=== PATIENT | female | born 1970 | race Caucasian/White ===

== ENCOUNTER 2020-08-21 13:33 | Emergency (ER) | payer BC, SELFPAY ==
[2020-08-21 13:48] VITALS: BP 144/97; PULSE 91; RESP 14; TEMP 36.3; O2SAT 97; BMI 20.5
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
[2020-08-21] MEDS: lidocaine-prilocaine cream 5 gm 2 APPLIC TOPICAL (14:41)
[2020-08-21 15:33] VITALS: BP 138/79; PULSE 75; RESP 15; O2SAT 97
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
== END 2020-08-21 15:33 | disposition home or self-care (01) ==
PROVIDERS: Emergency Provider Nurse Practitioner Family
DX: S01.511A Laceration without foreign body of lip, initial encounter (principal); S02.5XXB Fracture of tooth (traumatic), initial encounter for open fracture; W20.8XXA Other cause of strike by thrown, projected or falling object, initial encounter
CPT/HCPCS: 12013; 12345; 70486; 99282; 99283

== ENCOUNTER → 2020-12-13 10:12 | Outpatient (BNVA) | payer BC, SELFPAY | PROVIDERS: Visit Provider Family Medicine | DX: E03.9 Hypothyroidism, unspecified (principal); I10 Essential (primary) hypertension; Z13.6 Encounter for screening for cardiovascular disorders | CPT/HCPCS: 80053; 80061; 84443 ==

== ENCOUNTER 2021-01-09 06:41 | Outpatient (CLI) | payer BC, SELFPAY ==
[2021-01-09 06:51] VITALS: BMI 21.4
--- NOTE | 2021-01-09 07:02 | ECG_ITS ---
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 Interpretive Statements NAME OF STUDY: TREADMILL STRESS TEST INDICATION: Chest Pain Baseline blood pressure of 109/77 mm Hg, heart rate of 72 beats per minute and oxygen saturation 98%. EKG showed normal sinus rhythm, normal axis with RSR prime in V1 and V2 consider normal variant. The patient exercised for 10 minutes and 4 seconds on a standard Pranav protocol. Patient attained a maximum heart rate of 149 beats per minute(87% of the maximum predicted heart rate) with a blood pressure at the peak exercise of 172/79 mm Hg and oxygen saturation 97%. The EKG at the peak exercise revealed sinus tachycardia with no significant ST-T wave changes. Patient did not have any chest pain or any significant arrhythmis with the exercise. The study was terminated due to exertional fatigue and shortness of breath. During the recovery phase, there were no new changes. Blood pressure at the end of the recovery phase was 118/83 mm Hg with a heart rate of 71 beats per minute and oxygen saturation 97%. CONCLUSION: 1. Normal EKG response to treadmill exercise. 2. No exercise-induced chest pain or cardiac arrhythmia 3. Excellent exercise tolerance, attained a maximum of 13.5 METs. Maximum VO2 of 47.3 mL/kg/min. 4. Baseline normal blood pressure with normal response to exercise. Electronically Signed On 01-16-2021 17:08:54 CDT by Lorena Lloyd M.D. [id number]
[2021-01-09 07:46] VITALS: BP 118/83; PULSE 71
== END 2021-01-09 06:42 | disposition home or self-care (01) ==
LOC: CDL 06:46
PROVIDERS: PCP Family Medicine; Visit Provider Family Medicine
DX: R07.9 Chest pain, unspecified (principal)
CPT/HCPCS: 93017

== ENCOUNTER → 2021-03-17 11:09 | Outpatient (BNVA) | payer BC, SELFPAY | PROVIDERS: PCP Family Medicine; Visit Provider Family Medicine | DX: E03.9 Hypothyroidism, unspecified (principal) | CPT/HCPCS: 84439; 84443; 84481 ==

== ENCOUNTER 2021-05-16 09:05 | Outpatient (CLI) | payer BC, SELFPAY ==
--- NOTE | 2021-05-16 09:30 | MM_ITS ---
WS: [id number] BILATERAL SCREENING DIGITAL MAMMOGRAM WITH CAD HISTORY: Z12.39 - Encounter for other screening for malignant neoplasm. COMPARISON: 10/27/2019, 10/09/2018 Bilateral CC and MLO views submitted. Computer aided detection analyzed. Breast composition: There are scattered areas of fibroglandular density. No suspicious masses, microc alcifications or architectural distortion. Asymmetry in the RIGHT breast, lateral, is stable. MM/[place] [id number] IMPRESSION: BI-RADS: 2-Benign FOLLOW UP: 1 Year Follow-up
== END 2021-05-16 09:06 | disposition home or self-care (01) ==
LOC: RADSHAW 09:10
PROVIDERS: PCP Family Medicine; Visit Provider Family Medicine
DX: Z12.31 Encounter for screening mammogram for malignant neoplasm of breast (principal)
CPT/HCPCS: 77067

== ENCOUNTER → 2021-09-13 13:10 | Outpatient (BNVA) | payer BC, SELFPAY | PROVIDERS: PCP Family Medicine; Visit Provider Family Medicine | DX: Z13.220 Encounter for screening for lipoid disorders (principal); E03.9 Hypothyroidism, unspecified; I10 Essential (primary) hypertension; Z13.6 Encounter for screening for cardiovascular disorders; K21.9 Gastro-esophageal reflux disease without esophagitis; E89.40 Asymptomatic postprocedural ovarian failure; Z90.710 Acquired absence of both cervix and uterus | CPT/HCPCS: 80053; 80061; 84439; 84443; 84481 ==

== ENCOUNTER → 2022-03-14 13:38 | Outpatient (BNVA) | payer BC, SELFPAY | PROVIDERS: PCP Family Medicine; Visit Provider Family Medicine | DX: I10 Essential (primary) hypertension (principal); E03.9 Hypothyroidism, unspecified; L57.0 Actinic keratosis; E78.2 Mixed hyperlipidemia; Z12.31 Encounter for screening mammogram for malignant neoplasm of breast; Z13.6 Encounter for screening for cardiovascular disorders; Z12.11 Encounter for screening for malignant neoplasm of colon | CPT/HCPCS: 80053; 80061; 83721; 84439; 84443; 84481 ==

== ENCOUNTER 2022-05-18 09:40 | Outpatient (CLI) | payer BC, SELFPAY ==
--- NOTE | 2022-05-18 09:45 | MM_ITS ---
WS: [id number] Bilateral screening 3D tomosynthesis digital mammogram, 05/18/2022 Clinical Data: Z12.39 - Encounter for other screening for malignant neop... Comparison: 05/16/2021, 10/27/2019, 10/09/2018, 12/25/2017, 03/07/2017, 02/28/2016. Findings: The breast parenchymal pattern shows ingenious density. No spiculated masses or clustered calcificati ons are seen. There are no secondary signs of carcinoma. There are lymph nodes in both axilla. MM/[place] [id number] Impression: 1. Negative bilateral mammogram unchanged. 2. Recommend annual screening mammograms. BIRADS: 1-Negative FOLLOW UP: 1 Year Follow-up The CAD insurance checker was used.
== END 2022-05-18 09:41 | disposition home or self-care (01) ==
LOC: RAD 09:41
PROVIDERS: PCP Family Medicine; Visit Provider Family Medicine
DX: Z12.31 Encounter for screening mammogram for malignant neoplasm of breast (principal)
CPT/HCPCS: 77063; 77067

== ENCOUNTER → 2022-06-13 09:31 | Outpatient (BNVA) | payer BC, SELFPAY | PROVIDERS: PCP Family Medicine; Visit Provider Family Medicine | DX: I10 Essential (primary) hypertension (principal); E78.2 Mixed hyperlipidemia | CPT/HCPCS: 80061 ==

== ENCOUNTER 2022-07-04 06:46 | Day surgery (SDC) | payer BC, SELFPAY ==
[2022-07-02 09:30] VITALS: BMI 20.5
--- NOTE | 2022-07-04 07:38 | P.ANESASSM_ITS ---
Pre-Anesthetic Assessment Height/Weight: Height 1.63 m Weight 54.431 kg Operation Date: 07/04/22 08:30 Proposed Procedures p Colonoscopy 24005,Z12.11(Not Applicable) - Levi Arce DO Familial anesthetic complications: none Was Beta Siva taken within 24 hours: N/A Was Clonidine taken within 24 hours: N/A Last intake: > 8hrs Social No alcohol and No tobacco Exam alert, oriented x 3, clear to auscultation bilaterally and regular rate & rhythm Airway Mallampati: Class II Dentition: partials CV/HEM Hypertension GI Gastroesophageal Reflux Disease Metabolic Thyroid Disease Anesthetic Plan ASA status: 2 Anesthesia: MAC Risk of > 500 ml blood loss (7ml/kg in children): No Medications/Allergies Home Medications Medication Instructions Recorded Confirmed Last Taken Type estradiol 1 mg tablet 1 mg PO DAILY 90 days #90 tabs 09/13/21 07/02/22 Unknown Rx omeprazole 20 mg capsule,delayed 20 mg PO DAILY 90 days #90 caps 09/13/21 07/02/22 Unknown Rx release Fish oil 1,000 mg PO DAILY 03/30/22 07/02/22 Unknown History lisinopril 10 mg tablet 5 mg PO DAILY 06/13/22 07/02/22 Unknown History levothyroxine 50 mcg tablet 50 mcg PO DAILY 90 days #30 tabs 06/17/22 07/02/22 Unknown Rx Allergies Allergy/AdvReac Type Severity Reaction Status Date / Time celecoxib [From Celebrex] Allergy ADR-Swelling Verified 07/02/22 09:28 of the Eye doxycycline Allergy hypertensio Verified 07/02/22 09:28 n morphine Allergy ALGY-Rash Verified 07/02/22 09:28 Sulfa (Sulfonamide Allergy ADR-Swelling Verified 07/02/22 09:28 Antibiotics) of the Eye [facility] Anesthesia Medical History Family history of early CAD Family hx of colon cancer GERD (gastroesophageal reflux disease) Hypertension Hypothyroidism Surgical History H/O hysterectomy with oophorectomy History of esophagogastroduodenoscopy (EGD) Hx of colonoscopy Age 41 and 46 S/P cholecystectomy Family History Father Cancer Mother Cancer Other CAD (coronary artery disease) Hypertension Denies family history of Diabetes Social History Smoking and tobacco status: never smoked Second hand smoke exposure: No Alcohol intake: current Alcohol intake frequency: holidays/special occasions only Desire information about alcohol rehabilitation?: No Desire information about substance/drug rehabilitation?: No Female Reproductive History Spontaneous abortions: No Data Anesthesia Cardiac Studies: No Data to Display
[2022-07-04 07:47] VITALS: BP 110/82; PULSE 65; RESP 16; TEMP 36.3; O2SAT 97
[2022-07-04] MEDS: sodium chloride 0.9% 1,000 ML 30 ML IV (07:55)
--- NOTE | 2022-07-04 08:44 | P.HP_ITS ---
Providers/Chief Complaint Primary Care Provider: Doris Mitchell MD Chief Complaint: Family history of colon cancer History of Present Illness Aidee Lugo is a 52 year old female here for colonoscopy Medications/Allergies Home Medications Medication Instructions Recorded Confirmed Last Taken Type estradiol 1 mg tablet 1 mg PO DAILY 90 days #90 tabs 09/13/21 07/02/22 07/03/22 Rx omeprazole 20 mg capsule,delayed 20 mg PO DAILY 90 days #90 caps 09/13/21 07/02/22 07/03/22 08:00 Rx release Fish oil 1,000 mg PO DAILY 03/30/22 07/02/22 07/03/22 History lisinopril 10 mg tablet 5 mg PO DAILY 06/13/22 07/02/22 07/03/22 08:00 History levothyroxine 50 mcg tablet 50 mcg PO DAILY 90 days #30 tabs 06/17/22 07/02/22 07/04/22 06:00 Rx Allergies Allergy/AdvReac Type Severity Reaction Status Date / Time celecoxib [From Celebrex] Allergy ADR-Swelling Verified 07/02/22 09:28 of the Eye doxycycline Allergy hypertensio Verified 07/02/22 09:28 n morphine Allergy ALGY-Rash Verified 07/02/22 09:28 Sulfa (Sulfonamide Allergy ADR-Swelling Verified 07/02/22 09:28 Antibiotics) of the Eye PFSH Acute PFSH: Medical History (Updated 07/04/22 @ 08:44 by Levi Arce DO) Family history of early CAD Family hx of colon cancer GERD (gastroesophageal reflux disease) Hypertension Hypothyroidism Surgical History H/O hysterectomy with oophorectomy History of esophagogastroduodenoscopy (EGD) Hx of colonoscopy Age 41 and 46 S/P cholecystectomy Family History Father Cancer Mother Cancer Other CAD (coronary artery disease) Hypertension Denies family history of Diabetes Social History Smoking and tobacco status: never smoked Second hand smoke exposure: No Alcohol intake: current Alcohol intake frequency: holidays/special occasions only Desire information about alcohol rehabilitation?: No Desire information about substance/drug rehabilitation?: No Female Reproductive History: Spontaneous abortions: No Vitals/I&O/Wt Last Vital Signs Temp 97.3 F L 07/04/22 07:47 Pulse 65 07/04/22 07:47 Resp 16 07/04/22 07:47 BP 110/82 07/04/22 07:47 Pulse Ox 97 07/04/22 07:47 O2 Del Method 07/04/22 07:47 Weight last 48 hrs Weight 120 lb A&P Assessment and plan (1) Family hx of colon cancer: Plan Colonoscopy Attestations Medical Necessity Statement*: Home Coding Level of Care Code Acute Sharepoint Specialist for Chg Fwd Diagnoses Family hx of colon cancer Z80.0
[2022-07-04 09:09] VITALS: BP 108/66; PULSE 68; RESP 16; TEMP 36.1; O2SAT 99
--- NOTE | 2022-07-04 09:12 | ANE.PACU2 ---
Inpatient post-anesthesia follow up: Airway intact: Yes Vital signs: Temperature 97.3 F Pulse Rate 65 Respiratory Rate 16 Blood Pressure 110/82 Pulse Oximetry 97 Oxygen Delivery Me thod Room Air Oxygen Flow Rate Fraction of Inspir ed Oxygen Hydration adequate: Yes Nausea and vomiting: No Pain level: 1 Mental status: Baseline
[2022-07-04 09:20] VITALS: BP 111/75; PULSE 69; RESP 18; O2SAT 100
== END 2022-07-04 09:33 | disposition home or self-care (01) ==
PROVIDERS: PCP Family Medicine; Visit Provider Surgery
PROC: 0DJD8ZZ Inspection of Lower Intestinal Tract, Via Natural or Artificial Opening Endoscopic (ICD-10-PCS; CPT 45378; principal; 2022-07-04 08:30)
DX: Z12.11 Encounter for screening for malignant neoplasm of colon (principal); Z80.0 Family history of malignant neoplasm of digestive organs; I10 Essential (primary) hypertension; K21.9 Gastro-esophageal reflux disease without esophagitis; Z82.49 Family history of ischemic heart disease and other diseases of the circulatory system; E03.9 Hypothyroidism, unspecified
CPT/HCPCS: 45378; J7030

== ENCOUNTER → 2022-10-10 10:27 | Outpatient (BNVA) | payer BC, SELFPAY | PROVIDERS: PCP Family Medicine; Visit Provider Family Medicine | DX: E03.9 Hypothyroidism, unspecified (principal); I10 Essential (primary) hypertension; E78.2 Mixed hyperlipidemia; G43.109 Migraine with aura, not intractable, without status migrainosus; K21.9 Gastro-esophageal reflux disease without esophagitis; E89.40 Asymptomatic postprocedural ovarian failure; Z79.890 Hormone replacement therapy; Z90.710 Acquired absence of both cervix and uterus | CPT/HCPCS: 80053; 80061; 84439; 84443; 84481 ==

== ENCOUNTER → 2023-03-13 13:21 | Outpatient (BNVA) | payer BC, SELFPAY | PROVIDERS: PCP Family Medicine; Visit Provider Family Medicine | DX: M54.50 Low back pain, unspecified (principal); E03.9 Hypothyroidism, unspecified; E78.2 Mixed hyperlipidemia | CPT/HCPCS: 80061; 81000; 84439; 84443; 84481 ==

== ENCOUNTER → 2023-03-22 10:19 | Outpatient (BNVA) | payer BC, SELFPAY | PROVIDERS: PCP Family Medicine; Visit Provider Family Medicine | DX: E03.9 Hypothyroidism, unspecified (principal); E78.2 Mixed hyperlipidemia | CPT/HCPCS: 80061; 84439; 84443; 84481 ==

== ENCOUNTER 2023-05-21 12:28 | Outpatient (CLI) | payer BC, SELFPAY ==
--- NOTE | 2023-05-21 12:48 | MM_ITS ---
WS: [email or web address] BILATERAL 3D TOMOSYNTHESIS DIGITAL SCREENING MAMMOGRAPHY WITH CAD CLINICAL INFORMATION: SCREEN HISTORY: Screening mammogram. No current complaints. COMPARISON: 2021 TECHNIQUE: Bilateral CC and MLO views. FINDINGS: The breasts are composed of heterogeneous fibroglandular density tissue, which can limit the detectio n of small underlying mass lesions. No suspicious mass, asymmetry, calcifications, or architectural d istortion. No evidence of malignancy. IMPRESSION: MM/[place] [id number] BI-RADS: 1-Negative FOLLOW UP: 1 Year Follow-up Recommend return to annual screening mammography.
== END 2023-05-21 12:29 | disposition home or self-care (01) ==
PROVIDERS: PCP Family Medicine; Visit Provider Family Medicine
DX: Z12.31 Encounter for screening mammogram for malignant neoplasm of breast (principal)
CPT/HCPCS: 77063; 77067

== ENCOUNTER → 2023-09-09 11:12 | Outpatient (BNVA) | payer BC, SELFPAY | PROVIDERS: PCP Family Medicine; Visit Provider Family Medicine | DX: K21.9 Gastro-esophageal reflux disease without esophagitis (principal); I10 Essential (primary) hypertension; E03.9 Hypothyroidism, unspecified; E89.40 Asymptomatic postprocedural ovarian failure; Z90.710 Acquired absence of both cervix and uterus; R07.9 Chest pain, unspecified; Z79.890 Hormone replacement therapy; R07.89 Other chest pain; E78.2 Mixed hyperlipidemia; Z78.9 Other specified health status; R92.333 Mammographic heterogeneous density, bilateral breasts | CPT/HCPCS: 80053; 84439; 84443; 84481 ==

== ENCOUNTER → 2024-03-05 10:05 | Outpatient (BNVA) | payer BC, SELFPAY | PROVIDERS: PCP Family Medicine; Visit Provider Family Medicine | DX: E03.9 Hypothyroidism, unspecified (principal); E78.2 Mixed hyperlipidemia; I10 Essential (primary) hypertension | CPT/HCPCS: 73562; 80053; 80061; 84439; 84443; 84481 ==

== ENCOUNTER 2024-05-28 08:48 | Outpatient (CLI) | payer BC, SELFPAY ==
--- NOTE | 2024-05-28 08:54 | MM_ITS ---
WS: [id number] SCREENING DIGITAL BREAST TOMOSYNTHESIS MAMMOGRAM WITH CAD HISTORY: SCREENING COMPARISON: 03/07/2017, 05/21/2023, 05/18/2022 and 10/09/2018 Bilateral CC and MLO with tomosynthesis and synthetic mammography submitted. Computer aided detection analyzed. Breast composition: The breasts are heterogeneously dense, which may obscure small masses. Focal asym metry measuring 7 x 5 mm in the far lateral LEFT breast is just below the nipple line or at the nippl e line. Similar findings has been present on prior studies up but appears more dense today. Otherwise no change. MM/[place] [id number] IMPRESSION: BI-RADS: 0 - Incomplete: Need additional imaging evaluation FOLLOW UP: Need Additional Imaging LEFT breast: Spot compression views (CC and MLO). True ML. Ultrasound to follow if abnormality persists.
== END 2024-05-28 08:49 | disposition home or self-care (01) ==
LOC: RAD 08:49
PROVIDERS: PCP Family Medicine; Visit Provider Family Medicine
DX: Z12.31 Encounter for screening mammogram for malignant neoplasm of breast (principal); R92.333 Mammographic heterogeneous density, bilateral breasts; N64.89 Other specified disorders of breast
CPT/HCPCS: 77063; 77067

== ENCOUNTER 2024-06-30 10:12 | Outpatient (CLI) | payer BC, SELFPAY ==
--- NOTE | 2024-06-30 10:30 | MM_ITS ---
WS: [id number] ADDITIONAL VIEWS LEFT MAMMOGRAM with tomosynthesis. LEFT BREAST ULTRASOUND HISTORY: R92.8 - Other abnormal and inconclusive findings on diagn... COMPARISON: 05/28/2024, 05/21/2023 and 05/18/2022 LEFT MAMMOGRAM: Spot compression views and true ML with tomosynthesis and sympathetic mammography. Breast composition: The breasts are heterogeneously dense, which may obscure small masses. The asymmetry persists in the lateral LEFT breast which is at or near the nipple line. There is no di stortion. No suspicious calcifications. Ultrasound to follow. LEFT BREAST ULTRASOUND 2-D and color Doppler imaging submitted. Ultrasound is directed to the lateral LEFT breast from 2-5 o'clock. No mass or shadowing identified. Benign lymph node 3:00, 5 cm from the nipple measures 0.5 x 0.9 x 3.5 cm. MM/MM diag LT tomosynthesis [id number] IMPRESSION: BI-RADS: 2 - Benign FOLLOW UP: 1 Month Follow-up
--- NOTE | 2024-06-30 11:00 | US_ITS ---
WS: [id number] ADDITIONAL VIEWS LEFT MAMMOGRAM with tomosynthesis. LEFT BREAST ULTRASOUND HISTORY: R92.8 - Other abnormal and inconclusive findings on diagn... COMPARISON: 05/28/2024, 05/21/2023 and 05/18/2022 LEFT MAMMOGRAM: Spot compression views and true ML with tomosynthesis and sympathetic mammography. Breast composition: The breasts are heterogeneously dense, which may obscure small masses. The asymmetry persists in the lateral LEFT breast which is at or near the nipple line. There is no di stortion. No suspicious calcifications. Ultrasound to follow. LEFT BREAST ULTRASOUND 2-D and color Doppler imaging submitted. Ultrasound is directed to the lateral LEFT breast from 2-5 o'clock. No mass or shadowing identified. Benign lymph node 3:00, 5 cm from the nipple measures 0.5 x 0.9 x 3.5 cm. US/US breast LT limited* [id number] IMPRESSION: BI-RADS: 2 - Benign FOLLOW UP: 1 Month Follow-up
== END 2024-06-30 10:13 | disposition home or self-care (01) ==
PROVIDERS: PCP Family Medicine; Visit Provider Family Medicine
DX: R92.8 Other abnormal and inconclusive findings on diagnostic imaging of breast (principal); R92.333 Mammographic heterogeneous density, bilateral breasts
CPT/HCPCS: 76642; 77061; G0279

== ENCOUNTER → 2024-09-01 13:45 | Outpatient (BNVA) | payer BC, SELFPAY | PROVIDERS: PCP Family Medicine; Visit Provider Family Medicine | DX: E03.9 Hypothyroidism, unspecified (principal); E78.2 Mixed hyperlipidemia; I10 Essential (primary) hypertension | CPT/HCPCS: 80048; 80061; 84439; 84443; 84481 ==

== ENCOUNTER 2025-07-01 08:44 | Outpatient (CLI) | payer BC, SELFPAY ==
--- NOTE | 2025-07-01 09:00 | MM_ITS ---
WS: [id number] BILATERAL SCREENING DIGITAL TOMOSYNTHESIS MAMMOGRAM WITH CAD HISTORY: Z12.39 - Encounter for other screening for malignant neop... COMPARISON: 06/30/2024, 05/28/2024, 05/16/2021 Bilateral CC and MLO views with tomosynthesis and synthetic mammography submitted. Computer aided detection analyzed. Breast composition: There are scattered areas of fibroglandular density. No suspicious masses, microcalcifications or architectural distortion. MM/MM scr BI tomosynthesis [id number] IMPRESSION: BI-RADS: 2 - Benign. FOLLOW UP: 1 Year Follow-up
== END 2025-07-01 08:45 | disposition home or self-care (01) ==
LOC: RAD 08:46
PROVIDERS: PCP Family Medicine; Visit Provider Family Medicine
DX: Z12.31 Encounter for screening mammogram for malignant neoplasm of breast (principal); R92.323 Mammographic fibroglandular density, bilateral breasts
CPT/HCPCS: 77063; 77067

== ENCOUNTER → 2025-08-31 14:14 | Outpatient (BNVA) | payer BC, SELFPAY | PROVIDERS: PCP Family Medicine; Visit Provider Family Medicine | DX: E03.9 Hypothyroidism, unspecified (principal); I10 Essential (primary) hypertension; E78.2 Mixed hyperlipidemia; Z79.890 Hormone replacement therapy; R00.2 Palpitations | CPT/HCPCS: 80053; 80061; 83735; 84439; 84443; 84481; 85025 ==